=== PATIENT | female | born 1995 | race Caucasian/White ===

== ENCOUNTER 2024-11-12 13:17 | Emergency (ER) | payer BC, OTHER ==
[~2024-11-12] VITALS: Ht 170.2 cm; Wt 82.5 kg
[2024-11-12 13:31] VITALS: BP 105/70; PULSE 85; RESP 18; TEMP 97.8; O2SAT 98
[2024-11-12] MEDS ORDERED: VENL75TA4 PO (13:48)
--- NOTE | 2024-11-12 13:48 | Physician Documentation ---
HPI ~ General Chief Complaint: Medication Refill Stated Complaint: MED REQUEST Time Seen by MD: 13:44 Primary Medical Doctor: HAYDEE History of Present Illness HPI Comments 29 Year old female presents to the emergency department requesting a refill on her Effexor. Her usual dose 75 mg b.i.d.. She has been out for five days in his unable to get a refill until later this month, when she sees her psychiatrist. She denies any other concerns. Medication Reconciliation Allergies: Coded Allergies: No Known Allergies (Unverified , 11/12/24) Scheduled Venlafaxine HCl (Venlafaxine HCl), 1 TAB PO Q12H Past Medical History Past Medical History: No Pertinent History Past Surgical History: no surgical history Alcohol Use: None Drug Use: none Lives In: Home Review of Systems ROS As stated above in the HPI, otherwise all systems are reviewed and negative. Physical Exam Physical Exam Vital Signs: Temperature: 97.8, Source: Temporal, Heart Rate: 85, Respiratory Rate: 18, BP: 105/70, Pulse Oximetry: 98, Weight: 82.500 Physical Exam General: Alert, no apparent distress. HEENT: PERRL, EOMI, no injection, moist mucous membranes. Neck: Full range of motion. Respiratory: Lungs clear, no respiratory distress. Chest: No accessory muscle use. Cardiovascular: Regular rate and rhythm, no murmurs. Gastrointestinal: Soft, nontender, nondistended. Bowels sounds present. Extremities: Normal range of motion, no deformity. Neurologic: Oriented x4. Psychiatric: Normal mood and affect. Skin: Normal color, warm and dry. No edema, no ecchymosis. Progress Results/Orders Results/Orders Vital Signs 11/12/24 13:31 Temp 97.8 Pulse 85 Resp 18 B/P (MAP) 105/70 Pulse Ox 98 Medical Decision Making Differential Dx:Considerations: Include: Adverse circumstances, Economic, Psychosocial, Medical services unavail., Medication refill, Medication non- compliance, Other Departure Time of Disposition: 13:47 Disposition: 01 HOME / SELF CARE / HOMELESS Impression: Primary Impression: General medical exam Condition: Stable Discharge Instructions: Medicine Refill at the Emergency Department Additional Instructions: Resume your Effexor. Followup with psychiatrist. Return if worse. Referrals: NO PRIMARY CARE PROVIDER (PCP) Prescriptions Venlafaxine HCl (Venlafaxine HCl) 75 Mg Tablet 1 TAB PO Q12H for 30 Days, #60 TAB 0 Refills Prov: VARSHA GONZALEZ NP 11/12/24 Education Educated: Patient Educated regarding: diagnosis, treatment, prognosis, need for follow up Signature Scribe Signature: x Attestation: The note accurately reflects work and decisions made by me.Varsha Rasmussen NP 11/12/24 13:50 VARSHA GONZALEZ NP Nov 12, 2024 13:48
== END 2024-11-12 14:00 | disposition home or self-care (01) ==
LOC: ER 13:18
DX: Z00.00 Encounter for general adult medical examination without abnormal findings (principal); Z76.0 Encounter for issue of repeat prescription
CPT/HCPCS: 99282